=== PATIENT | female | born 1940 | race Caucasian/White ===

== ENCOUNTER 2023-07-02 20:37 | Inpatient (IN) | payer MEDICARE ==
[~2023-07-02] VITALS: Ht 170.2 cm; Wt 76.7 kg
[2023-07-02] MEDS ORDERED: IV NS 0.9% 1,000 ML BAG IV ONE (21:30)
[2023-07-02 21:52] LABS: SITE, VBG Right Radial; VBG BASE EXCESS -9.5 mmol/L (-3-3); VBG COHb 0.3 %; VBG MetHb 0.3 %; VBG O2Hb 95.5 %; VBG OXYGEN SATURATION 96.1 %; VBG PCO2 29.2 mmHg (40-52); VBG PH 7.333 (7.31-7.41); VENT MODE, VBG Nasal Cannula
[2023-07-02 22:07] LABS: BASOPHILS # (AUTO) 0.1 K/uL (0.0-0.2); BASOPHILS % (AUTO) 1.2 % (0.0-2.0); EOSINOPHILS % (AUTO) 0.1 % (0.0-6.0); HEMATOCRIT 32 % (33-45); LYMPHOCYTES # (AUTO) 0.7 K/uL (0.8-4.8); LYMPHOCYTES % (AUTO) 8.6 % (20.0-44.0); MEAN CORPUSCULAR HEMOGLOBIN 27 PG (26.0-33.0); MEAN CORPUSCULAR HGB CONC 31 g/dl (31.0-36.0); MEAN CORPUSCULAR VOLUME 87 fL (82-100); MONOCYTES # (AUTO) 1.2 K/uL (0.1-1.30); MONOCYTES % (AUTO) 13.6 % (2.0-12.0); NEUTROPHILS # (AUTO) 6.6 K/uL (1.8-8.9); NEUTROPHILS % (AUTO) 76.5 % (43.0-81.0); PLATELET COUNT (AUTO) 532 K/uL (150-450); RED BLOOD CELL COUNT(AUTO) 3.67 MIL/uL (4.0-5.2); WHITE BLOOD COUNT (AUTO) 8.6 K/uL (4.3-11.0)
[2023-07-02 22:35] LABS: CALCIUM, SERUM 8.2 mg/dL (8.5-10.1); CARBON DIOXIDE 18 mmol/L (21-32); CHLORIDE 97 mmol/L (98-107); CREATININE 2.2 mg/dL (0.6-1.3); INR 1.14 (0.91-1.10); PARTIAL THROMBOPLASTIN TIME 41.5 SEC (24.3-34.3); POTASSIUM 4.4 mmol/L (3.5-5.1); SODIUM SERUM 125 mmol/L (136-145); UREA NITROGEN, BLOOD 52 mg/dL (7-18)
[2023-07-02 22:40] LABS: GLUCOSE 447 mg/dL (74-106)
[2023-07-02 22:42] LABS: LACTIC ACID 1.4 mmol/L (0.4-2.0)
[2023-07-02 22:49] LABS: ALANINE AMINOTRANSFERASE 44 U/L (12-78); ALBUMIN 1.6 g/dL (3.4-5.0); ALKALINE PHOSPHATASE 205 U/L (46-116); ASPARTATE AMINOTRANSFERASE 37 U/L (15-37); BILIRUBIN,DIRECT 0.2 mg/dL (0.0-0.2); BILIRUBIN,TOTAL 0.3 mg/dL (0.2-1.0); LIPASE 117 U/L (16-77); TOTAL PROTEIN, SERUM 6.2 g/dL (6.4-8.2)
[2023-07-02 22:50] LABS: THYROID STIMULATING HORMONE 0.882 uIU/mL (0.358-3.74)
[2023-07-02] MEDS ORDERED: CEFEPIME 1 GM VIAL ONE (23:56)
[2023-07-03] MEDS ORDERED: IV NS 0.9% 1,000 ML BAG IV ONE
[2023-07-03] MEDS ORDERED: CEFEPIME 1 GM in IV D5W 50 ML IV ONE ×2
[2023-07-03] MEDS ORDERED: MAGNESIUM HYDROXIDE 30 ML UDC PO PRN (01:00)
[2023-07-03] MEDS ORDERED: ZOLPIDEM TARTRATE 5 MG TABLET PO PRN (01:00)
[2023-07-03] MEDS ORDERED: IV NS 0.9% 1,000 ML IV PRN (01:00)
[2023-07-03] MEDS ORDERED: MAG HYDROX/AL HYDROX/SIMETH 30 ML UDC PO PRN (01:00)
[2023-07-03] MEDS ORDERED: DEXTROSE 50%-WATER 50 ML DISP.SYRIN IV PRN (01:00)
[2023-07-03] MEDS ORDERED: Z GUARD REMEDY 4 OZ OINT TP PRN (01:00)
[2023-07-03] MEDS ORDERED: ACETAMINOPHEN 325 MG TABLET PO PRN ×2 (01:00→12:30)
[2023-07-03] MEDS ORDERED: ONDANSETRON HCL/PF 4 MG/2 ML VIAL IVP PRN (01:00)
[2023-07-03 02:46] LABS: CREATININE, URINE 13.8 MG/DL (30.0-125.0); URINE SODIUM, RANDOM 106 mmol/l (40-220)
[2023-07-03 02:47] LABS: APPEARANCE,URINE TURBID (CLEAR); BILIRUBIN,URINE NEGATIVE (NEGATIVE); BLOOD, URINE 3+ Ery/uL (NEGATIVE); COLOR,URINE YELLOW (YELLOW); KETONES,URINE NEGATIVE (NEGATIVE); LEUKOCYTE ESTERASE ,URINE 3+ (NEGATIVE); NITRITE, URINE NEGATIVE (NEGATIVE); PROTEIN,URINE 3+ mg/dl (NEGATIVE); UGLUCOSE NEGATIVE (NEGATIVE); UROBILINOGEN,URINE 0.2 EU/dL (0.2)
[2023-07-03 02:48] LABS: ADD URINE CULTURE YES; BACTERIA,URINE Many /HPF (None Seen); SQUAMOUS EPITHELIAL CELL,UR Rare /HPF (None Seen); WBC,URINE TOO NUMEROUS TO COUN /HPF (0-3)
[2023-07-03] MEDS: *INSULIN REGULAR(HUMULIN R)HUM 100 UNIT/ML VIAL SQ PRN ×5 (03:33→22:11)
[2023-07-03 04:00] VITALS: BP 136/91; TEMP 97.9; O2SAT 100
[2023-07-03 07:12] LABS: BASOPHILS % (AUTO) 0.3 % (0.0-2.0); HEMATOCRIT 29 % (33-45); HEMOGLOBIN 9.3 g/dL (11.5-14.8); LYMPHOCYTES # (AUTO) 0.6 K/uL (0.8-4.8); LYMPHOCYTES % (AUTO) 6.3 % (20.0-44.0); MEAN CORPUSCULAR HEMOGLOBIN 28 PG (26.0-33.0); MEAN CORPUSCULAR HGB CONC 32 g/dl (31.0-36.0); MEAN CORPUSCULAR VOLUME 87 fL (82-100); MONOCYTES # (AUTO) 1.2 K/uL (0.1-1.30); MONOCYTES % (AUTO) 12.3 % (2.0-12.0); NEUTROPHILS # (AUTO) 8.2 K/uL (1.8-8.9); NEUTROPHILS % (AUTO) 81.1 % (43.0-81.0); PLATELET COUNT (AUTO) 486 K/uL (150-450); RED BLOOD CELL COUNT(AUTO) 3.33 MIL/uL (4.0-5.2); RED CELL DISTRIBUTION WIDTH 15.9 % (11.5-15.0); WHITE BLOOD COUNT (AUTO) 10.1 K/uL (4.3-11.0)
[2023-07-03 07:37] LABS: ALANINE AMINOTRANSFERASE 39 U/L (12-78); ALKALINE PHOSPHATASE 178 U/L (46-116); ASPARTATE AMINOTRANSFERASE 31 U/L (15-37); BILIRUBIN,TOTAL 0.3 mg/dL (0.2-1.0); CALCIUM, SERUM 8.1 mg/dL (8.5-10.1); CARBON DIOXIDE 20 mmol/L (21-32); CHLORIDE 104 mmol/L (98-107); MAGNESIUM 1.8 mg/dL (1.8-2.4); PHOSPHORUS 4.4 mg/dL (2.5-4.9); POTASSIUM 4.1 mmol/L (3.5-5.1); SODIUM SERUM 131 mmol/L (136-145); TOTAL PROTEIN, SERUM 5.6 g/dL (6.4-8.2); UREA NITROGEN, BLOOD 46 mg/dL (7-18)
[2023-07-03 07:43] LABS: ALBUMIN 1.4 g/dL (3.4-5.0); GLUCOSE 407 mg/dL (74-106)
[2023-07-03 07:44] LABS: CHOLESTEROL 58 mg/dL (<200); HDL CHOLESTEROL 28 mg/dL (40-60); LDL 22 mg/dL (0-99); THYROID STIMULATING HORMONE 0.668 uIU/mL (0.358-3.74); TRIGLYCERIDES 55 mg/dL (30-150)
[2023-07-03] MEDS: INSULIN REGULAR, HUMAN 100 UNIT/ML 3 ML VIAL SQ PRN ×2 (07:44→07:48)
[2023-07-03 08:00] VITALS: BP 113/69; TEMP 98.2; O2SAT 98
[2023-07-03] MEDS ORDERED: PANTOPRAZOLE 40 MG VIAL IV SCH (09:00)
[2023-07-03] MEDS ORDERED: HEPARIN SODIUM, PORCINE 5000 UNITS/1 ML VIAL SQ SCH (09:00)
[2023-07-03] MEDS ORDERED: FLUO15OI TP (09:02)
[2023-07-03] MEDS ORDERED: CHOL200059 PO (09:02)
[2023-07-03] MEDS ORDERED: B CO1TAB4 PO (09:02)
[2023-07-03] MEDS ORDERED: INSU100I28 SQ ×2 (09:02)
[2023-07-03] MEDS ORDERED: LEVO25TA7 PO (09:02)
[2023-07-03] MEDS ORDERED: BUPR-319 PO (09:02)
[2023-07-03] MEDS ORDERED: ACET-868 PO (09:02)
[2023-07-03] MEDS ORDERED: METO50TA16 PO (09:02)
[2023-07-03] MEDS ORDERED: LOPE2TAB23 PO (09:02)
[2023-07-03] MEDS ORDERED: IPRA42SP BNOSTRILS (09:02)
[2023-07-03] MEDS ORDERED: MAG355OR32 PO (09:02)
[2023-07-03] MEDS ORDERED: BLOO-668 IN (09:02)
[2023-07-03] MEDS ORDERED: RISP0.5T5 PO (09:02)
[2023-07-03] MEDS ORDERED: GUAI5SYR PO (09:02)
[2023-07-03] MEDS ORDERED: FLUT1DIS IH (09:02)
[2023-07-03] MEDS ORDERED: BISA10SU11 RC (09:02)
[2023-07-03] MEDS ORDERED: HYDR25SU33 RC (09:02)
[2023-07-03] MEDS ORDERED: MAGN400O6 PO (09:02)
[2023-07-03] MEDS ORDERED: APIX5TAB PO (09:02)
[2023-07-03] MEDS ORDERED: INSU100I30 SQ (09:02)
[2023-07-03] MEDS ORDERED: FAMO20TA8 PO (09:02)
[2023-07-03] MEDS ORDERED: ASCO-340 PO (09:02)
[2023-07-03] MEDS ORDERED: NYST15PO3 TP (09:02)
[2023-07-03] MEDS ORDERED: SERT100T PO (09:02)
[2023-07-03] MEDS ORDERED: POLY17PO4 PO (09:02)
[2023-07-03] MEDS ORDERED: QUET25TA PO (09:02)
[2023-07-03] MEDS ORDERED: ATOR80TA PO (09:02)
[2023-07-03] MEDS ORDERED: CETI-108 PO (09:02)
[2023-07-03] MEDS ORDERED: MEMA10TA PO (09:02)
[2023-07-03] MEDS ORDERED: MYRBETRIQ PO (09:02)
[2023-07-03] MEDS ORDERED: DONE10TA44 PO (09:02)
[2023-07-03] MEDS: THERAHONEY GEL 1.5 OZ TUBE TP SCH (09:30)
[2023-07-03 12:00] VITALS: BP 108/64; TEMP 98.8; O2SAT 99
[2023-07-03] MEDS ORDERED: POLYETHYLENE GLYCOL 3350 17 GM POWD.PACK PO PRN (12:30)
[2023-07-03] MEDS ORDERED: BISACODYL SUPP (10 MG) 10 MG/SUPP.RECT SUPP.RECT RC PRN (12:30)
[2023-07-03] MEDS: BLOOD SUGAR DIAGNOSTIC 1 EACH STRIP VI SCH ×3 (12:34→22:08)
[2023-07-03] MEDS: IV NS 0.9% 1,000 ML IV PRN ×2 (12:41→22:34)
[2023-07-03] MEDS: DONEPEZIL 5 MG TABLET PO SCH (12:49)
[2023-07-03 16:00] VITALS: BP 108/67; TEMP 98.7; O2SAT 99
[2023-07-03] MEDS ORDERED: FLUTICASONE/SALMETEROL 1 DISK IH SCH (17:00)
[2023-07-03] MEDS: FAMOTIDINE (20 MG) 20 MG TABLET PO SCH (17:33)
[2023-07-03] MEDS: METOPROLOL TARTRATE 50 MG TABLET PO SCH (17:34)
[2023-07-03] MEDS: MEMANTINE HCL 5 MG TABLET PO SCH (17:34)
[2023-07-03] MEDS: APIXABAN 2.5 MG TABLET PO SCH (17:35)
[2023-07-03] MEDS: INSULIN GLARGINE, 100 UNIT/ML CARTRIDGE SQ SCH (17:37)
[2023-07-03] MEDS: ALBUTEROL FS 2.5 MG/3 ML VIAL.NEB NEB SCH (19:30)
[2023-07-03 20:00] VITALS: BP 109/72; TEMP 97.7; O2SAT 100
[2023-07-03] MEDS: ATORVASTATIN 40 MG TABLET PO SCH (22:09)
[2023-07-03] MEDS: CEFEPIME 1 GM in IV D5W 50 ML IV SCH (23:33)
[2023-07-04] VITALS (15 sets, daily range): BP systolic 102–121; BP diastolic 61–89; TEMP 96.5–98.1; O2SAT 94–100
[2023-07-04] MEDS: ALBUTEROL FS 2.5 MG/3 ML VIAL.NEB NEB SCH ×4 (01:52→19:47)
[2023-07-04 06:50] LABS: BASOPHILS % (AUTO) 0.4 % (0.0-2.0); EOSINOPHILS # (AUTO) 0.3 K/uL (0.0-0.7); EOSINOPHILS % (AUTO) 2.7 % (0.0-6.0); HEMATOCRIT 31 % (33-45); LYMPHOCYTES # (AUTO) 1.5 K/uL (0.8-4.8); LYMPHOCYTES % (AUTO) 14.1 % (20.0-44.0); MEAN CORPUSCULAR HEMOGLOBIN 28 PG (26.0-33.0); MEAN CORPUSCULAR HGB CONC 32 g/dl (31.0-36.0); MEAN CORPUSCULAR VOLUME 88 fL (82-100); MONOCYTES # (AUTO) 2.1 K/uL (0.1-1.30); NEUTROPHILS # (AUTO) 6.7 K/uL (1.8-8.9); NEUTROPHILS % (AUTO) 62.8 % (43.0-81.0); PLATELET COUNT (AUTO) 444 K/uL (150-450); RED BLOOD CELL COUNT(AUTO) 3.57 MIL/uL (4.0-5.2); WHITE BLOOD COUNT (AUTO) 10.6 K/uL (4.3-11.0)
[2023-07-04 07:19] LABS: CALCIUM, SERUM 7.6 mg/dL (8.5-10.1); CARBON DIOXIDE 17 mmol/L (21-32); CHLORIDE 108 mmol/L (98-107); CREATININE 1.4 mg/dL (0.6-1.3); GLUCOSE 192 mg/dL (74-106); MAGNESIUM 1.7 mg/dL (1.8-2.4); PHOSPHORUS 3.4 mg/dL (2.5-4.9); POTASSIUM 3.4 mmol/L (3.5-5.1); SODIUM SERUM 135 mmol/L (136-145); UREA NITROGEN, BLOOD 35 mg/dL (7-18)
[2023-07-04] MEDS: BUDESONIDE RESPULE INH 0.5 MG/2 ML AMPUL.NEB NEB SCH ×2 (07:20→15:00)
[2023-07-04] MEDS: BLOOD SUGAR DIAGNOSTIC 1 EACH STRIP VI SCH ×4 (07:26→21:15)
[2023-07-04] MEDS: *INSULIN REGULAR(HUMULIN R)HUM 100 UNIT/ML VIAL SQ PRN ×2 (07:43→21:30)
[2023-07-04] MEDS: LEVOTHYROXINE SODIUM 25 MCG TABLET PO SCH (07:50)
[2023-07-04] MEDS ORDERED: MAGNESIUM OXIDE 400 MG TABLET PO ONE (08:30)
[2023-07-04] MEDS: CHOLECALCIFEROL 1,000 UNIT TABLET (VIT D3) PO SCH (08:38)
[2023-07-04] MEDS: METOPROLOL TARTRATE 50 MG TABLET PO SCH ×2 (08:38→16:30)
[2023-07-04] MEDS: THERAHONEY GEL 1.5 OZ TUBE TP SCH (08:39)
[2023-07-04] MEDS: SERTRALINE HCL 50 MG TABLET PO SCH (08:39)
[2023-07-04] MEDS: FAMOTIDINE (20 MG) 20 MG TABLET PO SCH ×2 (08:39→16:30)
[2023-07-04] MEDS: VITAMIN B COMP W-C 1 TAB TABLET PO SCH (08:39)
[2023-07-04] MEDS: MEMANTINE HCL 5 MG TABLET PO SCH ×2 (08:39→16:30)
[2023-07-04] MEDS: APIXABAN 2.5 MG TABLET PO SCH ×2 (08:41→16:31)
[2023-07-04] MEDS: DONEPEZIL 5 MG TABLET PO SCH (08:55)
[2023-07-04] MEDS ORDERED: ASCORBIC ACID 500 MG TABLET PO SCH (09:00)
[2023-07-04] MEDS ORDERED: POTASSIUM CHLORIDE 20 MEQ TAB.PRT.SR PO SCH (09:00)
[2023-07-04] MEDS: IV NS 0.9% 1,000 ML IV PRN ×2 (09:34→21:36)
[2023-07-04] MEDS: INSULIN REGULAR, HUMAN 100 UNIT/ML 3 ML VIAL SQ PRN ×2 (11:09→17:04)
[2023-07-04] MEDS: CEFEPIME 1 GM in IV D5W 50 ML IV SCH (11:28)
[2023-07-04] MEDS: PROSOURCE / PROSTAT (PYXIS) 30 ML UDC GT SCH (16:27)
[2023-07-04] MEDS: INSULIN GLARGINE, 100 UNIT/ML CARTRIDGE SQ SCH (17:12)
[2023-07-04] MEDS: ATORVASTATIN 40 MG TABLET PO SCH (21:15)
[2023-07-05] VITALS (14 sets, daily range): BP systolic 114–121; BP diastolic 68–82; TEMP 97.9–98.3; O2SAT 94–100
[2023-07-05] MEDS: CEFEPIME 1 GM in IV D5W 50 ML IV SCH ×2 (00:02→11:11)
[2023-07-05] MEDS: ALBUTEROL FS 2.5 MG/3 ML VIAL.NEB NEB SCH ×4 (01:49→19:47)
[2023-07-05] MEDS: BLOOD SUGAR DIAGNOSTIC 1 EACH STRIP VI SCH ×4 (07:46→22:12)
[2023-07-05] MEDS: LEVOTHYROXINE SODIUM 25 MCG TABLET PO SCH (07:46)
[2023-07-05] MEDS: INSULIN REGULAR, HUMAN 100 UNIT/ML 3 ML VIAL SQ PRN ×3 (07:56→17:05)
[2023-07-05 08:00] LABS: CALCIUM, SERUM 7.8 mg/dL (8.5-10.1); CREATININE 1.1 mg/dL (0.6-1.3); MAGNESIUM 1.7 mg/dL (1.8-2.4); POTASSIUM 3.4 mmol/L (3.5-5.1)
[2023-07-05] MEDS: BUDESONIDE RESPULE INH 0.5 MG/2 ML AMPUL.NEB NEB SCH ×2 (08:07→14:07)
[2023-07-05] MEDS: CHOLECALCIFEROL 1,000 UNIT TABLET (VIT D3) PO SCH (08:30)
[2023-07-05] MEDS: VIT B CMPLX 3/FA/VIT C/BIOTIN 1 TAB TABLET PO SCH (08:30)
[2023-07-05] MEDS: PROSOURCE / PROSTAT (PYXIS) 30 ML UDC GT SCH ×3 (08:30→16:57)
[2023-07-05] MEDS: DONEPEZIL 5 MG TABLET PO SCH (08:30)
[2023-07-05] MEDS: VITAMIN B COMP W-C 1 TAB TABLET PO SCH (08:30)
[2023-07-05] MEDS: SERTRALINE HCL 50 MG TABLET PO SCH (08:31)
[2023-07-05] MEDS: FAMOTIDINE (20 MG) 20 MG TABLET PO SCH ×2 (08:31→17:01)
[2023-07-05] MEDS: METOPROLOL TARTRATE 50 MG TABLET PO SCH ×2 (08:31→17:01)
[2023-07-05] MEDS: MEMANTINE HCL 5 MG TABLET PO SCH ×2 (08:31→17:01)
[2023-07-05] MEDS: ZINC SULFATE 220 MG CAPSULE PO SCH (08:32)
[2023-07-05] MEDS: THERAHONEY GEL 1.5 OZ TUBE TP SCH (08:32)
[2023-07-05] MEDS: APIXABAN 2.5 MG TABLET PO SCH ×2 (08:32→17:00)
[2023-07-05] MEDS: GLUCERNA SHAKE 237 ML CAN PO SCH (08:33)
[2023-07-05] MEDS ORDERED: POTASSIUM CHLORIDE 20 MEQ TAB.PRT.SR PO SCH (10:00)
[2023-07-05] MEDS: IV NS 0.9% 1,000 ML IV PRN ×2 (10:02→22:26)
[2023-07-05] MEDS ORDERED: MAGNESIUM OXIDE 400 MG TABLET PO ONE (10:30)
[2023-07-05] MEDS: INSULIN GLARGINE, 100 UNIT/ML CARTRIDGE SQ SCH (17:03)
[2023-07-05] MEDS: ATORVASTATIN 40 MG TABLET PO SCH (22:08)
[2023-07-05] MEDS: *INSULIN REGULAR(HUMULIN R)HUM 100 UNIT/ML VIAL SQ PRN (22:25)
[2023-07-06] VITALS (16 sets, daily range): BP systolic 113–129; BP diastolic 63–78; TEMP 97.7–98.1; O2SAT 96–100
[2023-07-06] MEDS: CEFEPIME 1 GM in IV D5W 50 ML IV SCH (01:03)
[2023-07-06] MEDS: ALBUTEROL FS 2.5 MG/3 ML VIAL.NEB NEB SCH ×4 (01:15→20:35)
[2023-07-06 07:06] LABS: CALCIUM, SERUM 7.8 mg/dL (8.5-10.1); MAGNESIUM 1.8 mg/dL (1.8-2.4); POTASSIUM 3.5 mmol/L (3.5-5.1)
[2023-07-06] MEDS: BLOOD SUGAR DIAGNOSTIC 1 EACH STRIP VI SCH ×4 (07:21→21:40)
[2023-07-06] MEDS: INSULIN REGULAR, HUMAN 100 UNIT/ML 3 ML VIAL SQ PRN ×3 (07:22→17:26)
[2023-07-06] MEDS: BUDESONIDE RESPULE INH 0.5 MG/2 ML AMPUL.NEB NEB SCH ×2 (07:52→16:15)
[2023-07-06] MEDS: VIT B CMPLX 3/FA/VIT C/BIOTIN 1 TAB TABLET PO SCH (08:18)
[2023-07-06] MEDS: CHOLECALCIFEROL 1,000 UNIT TABLET (VIT D3) PO SCH (08:18)
[2023-07-06] MEDS: FAMOTIDINE (20 MG) 20 MG TABLET PO SCH ×2 (08:18→17:12)
[2023-07-06] MEDS: LEVOTHYROXINE SODIUM 25 MCG TABLET PO SCH (08:18)
[2023-07-06] MEDS: VITAMIN B COMP W-C 1 TAB TABLET PO SCH (08:18)
[2023-07-06] MEDS: DONEPEZIL 5 MG TABLET PO SCH (08:19)
[2023-07-06] MEDS: APIXABAN 2.5 MG TABLET PO SCH ×2 (08:19→17:13)
[2023-07-06] MEDS: ZINC SULFATE 220 MG CAPSULE PO SCH (08:20)
[2023-07-06] MEDS: SERTRALINE HCL 50 MG TABLET PO SCH (08:20)
[2023-07-06] MEDS: METOPROLOL TARTRATE 50 MG TABLET PO SCH ×2 (08:20→17:12)
[2023-07-06] MEDS: MEMANTINE HCL 5 MG TABLET PO SCH ×2 (08:20→17:12)
[2023-07-06] MEDS: PROSOURCE / PROSTAT (PYXIS) 30 ML UDC GT SCH ×3 (08:21→17:00)
[2023-07-06] MEDS: GLUCERNA SHAKE 237 ML CAN PO SCH (08:21)
[2023-07-06] MEDS: THERAHONEY GEL 1.5 OZ TUBE TP SCH (08:21)
[2023-07-06] MEDS: INSULIN GLARGINE, 100 UNIT/ML CARTRIDGE SQ SCH (17:33)
[2023-07-06] MEDS: CEFEPIME 2 GM in IV D5W 100 ML IV SCH (20:47)
[2023-07-06] MEDS: ATORVASTATIN 40 MG TABLET PO SCH (21:08)
[2023-07-06] MEDS: *INSULIN REGULAR(HUMULIN R)HUM 100 UNIT/ML VIAL SQ PRN (21:50)
[2023-07-07] VITALS (13 sets, daily range): BP systolic 112–129; BP diastolic 72–78; TEMP 97.9–99.3; O2SAT 95–100
[2023-07-07] MEDS: ALBUTEROL FS 2.5 MG/3 ML VIAL.NEB NEB SCH ×4 (01:55→20:22)
[2023-07-07 07:46] LABS: CALCIUM, SERUM 8.1 mg/dL (8.5-10.1); CREATININE 0.9 mg/dL (0.6-1.3); POTASSIUM 3.6 mmol/L (3.5-5.1)
[2023-07-07] MEDS: BUDESONIDE RESPULE INH 0.5 MG/2 ML AMPUL.NEB NEB SCH ×2 (07:57→16:16)
[2023-07-07] MEDS: BLOOD SUGAR DIAGNOSTIC 1 EACH STRIP VI SCH ×4 (07:58→21:45)
[2023-07-07] MEDS: VITAMIN B COMP W-C 1 TAB TABLET PO SCH (08:13)
[2023-07-07] MEDS: CHOLECALCIFEROL 1,000 UNIT TABLET (VIT D3) PO SCH (08:13)
[2023-07-07] MEDS: SERTRALINE HCL 50 MG TABLET PO SCH (08:13)
[2023-07-07] MEDS: FAMOTIDINE (20 MG) 20 MG TABLET PO SCH ×2 (08:13→17:00)
[2023-07-07] MEDS: DONEPEZIL 5 MG TABLET PO SCH (08:13)
[2023-07-07] MEDS: LEVOTHYROXINE SODIUM 25 MCG TABLET PO SCH (08:13)
[2023-07-07] MEDS: VIT B CMPLX 3/FA/VIT C/BIOTIN 1 TAB TABLET PO SCH (08:13)
[2023-07-07] MEDS: ZINC SULFATE 220 MG CAPSULE PO SCH (08:13)
[2023-07-07] MEDS: MEMANTINE HCL 5 MG TABLET PO SCH ×2 (08:14→17:00)
[2023-07-07] MEDS: APIXABAN 2.5 MG TABLET PO SCH ×2 (08:14→17:01)
[2023-07-07] MEDS: METOPROLOL TARTRATE 50 MG TABLET PO SCH ×2 (08:14→17:00)
[2023-07-07] MEDS: PROSOURCE / PROSTAT (PYXIS) 30 ML UDC GT SCH ×3 (08:15→17:01)
[2023-07-07] MEDS: GLUCERNA SHAKE 237 ML CAN PO SCH (08:15)
[2023-07-07] MEDS: THERAHONEY GEL 1.5 OZ TUBE TP SCH (08:16)
[2023-07-07] MEDS: CEFEPIME 2 GM in IV D5W 100 ML IV SCH ×2 (08:39→21:45)
[2023-07-07] MEDS: *INSULIN REGULAR(HUMULIN R)HUM 100 UNIT/ML VIAL SQ PRN ×3 (11:35→21:54)
[2023-07-07] MEDS ORDERED: AMOX-430 PO (12:13)
[2023-07-07] MEDS: INSULIN GLARGINE, 100 UNIT/ML CARTRIDGE SQ SCH (17:27)
[2023-07-07] MEDS: ATORVASTATIN 40 MG TABLET PO SCH (21:45)
[2023-07-07] MEDS: INSULIN REGULAR, HUMAN 100 UNIT/ML 3 ML VIAL SQ PRN (21:51)
[2023-07-08] VITALS (8 sets, daily range): BP systolic 112–122; BP diastolic 67–78; TEMP 97.7–99.3; O2SAT 95–100
[2023-07-08] MEDS: ALBUTEROL FS 2.5 MG/3 ML VIAL.NEB NEB SCH ×3 (02:16→13:30)
[2023-07-08 06:58] LABS: CALCIUM, SERUM 7.8 mg/dL (8.5-10.1); CREATININE 1.2 mg/dL (0.6-1.3); POTASSIUM 3.4 mmol/L (3.5-5.1)
[2023-07-08] MEDS: INSULIN REGULAR, HUMAN 100 UNIT/ML 3 ML VIAL SQ PRN ×2 (08:22→12:38)
[2023-07-08] MEDS: BLOOD SUGAR DIAGNOSTIC 1 EACH STRIP VI SCH ×2 (08:32→12:34)
[2023-07-08] MEDS: APIXABAN 2.5 MG TABLET PO SCH (08:46)
[2023-07-08] MEDS: VITAMIN B COMP W-C 1 TAB TABLET PO SCH (08:47)
[2023-07-08] MEDS: VIT B CMPLX 3/FA/VIT C/BIOTIN 1 TAB TABLET PO SCH (08:47)
[2023-07-08] MEDS: SERTRALINE HCL 50 MG TABLET PO SCH (08:47)
[2023-07-08] MEDS: MEMANTINE HCL 5 MG TABLET PO SCH (08:47)
[2023-07-08] MEDS: CHOLECALCIFEROL 1,000 UNIT TABLET (VIT D3) PO SCH (08:47)
[2023-07-08] MEDS: ZINC SULFATE 220 MG CAPSULE PO SCH (08:47)
[2023-07-08] MEDS: FAMOTIDINE (20 MG) 20 MG TABLET PO SCH (08:48)
[2023-07-08] MEDS: LEVOTHYROXINE SODIUM 25 MCG TABLET PO SCH (08:48)
[2023-07-08] MEDS: METOPROLOL TARTRATE 50 MG TABLET PO SCH (08:48)
[2023-07-08] MEDS: DONEPEZIL 5 MG TABLET PO SCH (08:48)
[2023-07-08] MEDS: BUDESONIDE RESPULE INH 0.5 MG/2 ML AMPUL.NEB NEB SCH (08:49)
[2023-07-08] MEDS: CEFEPIME 2 GM in IV D5W 100 ML IV SCH (08:50)
[2023-07-08] MEDS: GLUCERNA SHAKE 237 ML CAN PO SCH (09:04)
[2023-07-08] MEDS: PROSOURCE / PROSTAT (PYXIS) 30 ML UDC GT SCH ×2 (09:04→12:55)
[2023-07-08] MEDS ORDERED: POTASSIUM CHLORIDE 20 MEQ TAB.PRT.SR PO SCH (10:30)
[2023-07-08] MEDS: THERAHONEY GEL 1.5 OZ TUBE TP SCH (10:46)
== END 2023-07-08 14:38 | DRG 177 ==
LOC: ER 20:42 → MEDSG1 07-03 01:27 → TELE1 07-03 01:35 → MEDSG1 07-04 14:13
PROVIDERS: ADMIT Nurse Practitioner Acute Care; ATTEND Internal Medicine
PROC: 05HB33Z Insertion of Infusion Device into Right Basilic Vein, Percutaneous Approach (ICD-10-PCS; 2023-07-03)
PROC: 05HA33Z Insertion of Infusion Device into Left Brachial Vein, Percutaneous Approach (ICD-10-PCS; principal; 2023-07-05)
DX: J69.0 Pneumonitis due to inhalation of food and vomit (principal); E43 Unspecified severe protein-calorie malnutrition; L89.153 Pressure ulcer of sacral region, stage 3; J96.01 Acute respiratory failure with hypoxia; G93.41 Metabolic encephalopathy; N39.0 Urinary tract infection, site not specified; N17.9 Acute kidney failure, unspecified; N13.6 Pyonephrosis; E87.1 Hypo-osmolality and hyponatremia; D68.59 Other primary thrombophilia; Z66 Do not resuscitate; F03.90 Unspecified dementia, unspecified severity, without behavioral disturbance, psychotic disturbance, mood disturbance, and anxiety; E03.9 Hypothyroidism, unspecified; I10 Essential (primary) hypertension; Z88.2 Allergy status to sulfonamides; Z88.1 Allergy status to other antibiotic agents; Z88.3 Allergy status to other anti-infective agents; Z91.013 Allergy to seafood; B96.89 Other specified bacterial agents as the cause of diseases classified elsewhere; E11.65 Type 2 diabetes mellitus with hyperglycemia; E86.1 Hypovolemia; N32.0 Bladder-neck obstruction; I48.0 Paroxysmal atrial fibrillation; Z86.73 Personal history of transient ischemic attack (TIA), and cerebral infarction without residual deficits; Z74.01 Bed confinement status; Z98.84 Bariatric surgery status; E88.09 Other disorders of plasma-protein metabolism, not elsewhere classified; E86.0 Dehydration; E04.1 Nontoxic single thyroid nodule; D25.9 Leiomyoma of uterus, unspecified; Z79.51 Long term (current) use of inhaled steroids; Z79.899 Other long term (current) drug therapy; Z79.4 Long term (current) use of insulin
CPT/HCPCS: 36415; 36600; 70450-TC; 71045-TC; 71250-TC; 80048-TC; 80053-TC; 80061-TC; 80076-TC; 81001; 82010-TC; 82570-TC; 82803-TC; 82962-TC; 83605-TC; 83690-TC; 83735-TC; 83935-TC; 84100-TC; 84300-TC; 84436-TC; 84439-TC; 84443-TC; 84484-TC; 85025-TC; 85730-TC; 87040-TC; 87086-TC; 92526; 92611-TC; 94799-TC; 97112-TC; 97530-TC; A4223; C9113; G0378; J0692; J1644; J1815; J7030; J7040; J7060